=== PATIENT | male | born 1970 | race Caucasian/White ===

== ENCOUNTER 2021-12-07 11:33 | Emergency (ER) | payer BC ==
[2021-12-07] MEDS ORDERED: BASA100I SC (11:43)
[2021-12-07] MEDS ORDERED: TOUJ300I2 SC (11:43)
[2021-12-07] MEDS ORDERED: ROSU20TA5 PO (11:43)
[2021-12-07 13:29] VITALS: BP 137/81
== END 2021-12-07 13:31 | disposition home or self-care (01) ==
LOC: M ED 11:33
DX: S69.91XA Unspecified injury of right wrist, hand and finger(s), initial encounter (principal); X58.XXXA Exposure to other specified factors, initial encounter; E11.9 Type 2 diabetes mellitus without complications; Z79.4 Long term (current) use of insulin; Z88.8 Allergy status to other drugs, medicaments and biological substances